=== PATIENT | female | born 1990 | race Caucasian/White ===

== ENCOUNTER → 2022-06-12 | Outpatient (CLI) | payer OTHER ==
[2022-06-12 18:57] LABS: BASO % 0.9 % (0.0-1.0); EOS % 0.9 % (0.0-3.0); HEMATOCRIT 40.8 % (36.0-47.0); HEMOGLOBIN 13.8 g/dl (12.0-15.5); LYMPH # 2.2 10^3/uL (1.5-5.0); LYMPH % 47.4 % (24.0-44.0); MEAN CORPUSCULAR HEMOGLOBIN 31.4 pg (27.0-33.0); MEAN CORPUSCULAR HGB CONC 33.8 g/dl (32.0-36.5); MEAN CORPUSCULAR VOLUME 92.9 fl (80.0-96.0); MONO # 0.6 10^3/uL (0.0-0.8); MONO % 12.6 % (2.0-8.0); NEUTROPHILS # 1.7 10^3/uL (1.5-8.5); PLATELET COUNT, AUTOMATED 250 10^3/uL (150-450); RED BLOOD COUNT 4.39 10^6/uL (4.00-5.40); WHITE BLOOD COUNT 4.5 10^3/uL (4.0-10.0)
[2022-06-12 23:34] LABS: ALT/SGPT 21 U/L (12-78); BILIRUBIN,TOTAL 0.5 MG/DL (0.2-1.0); BLOOD UREA NITROGEN 13 MG/DL (7-18); CALCIUM LEVEL 9.5 MG/DL (8.5-10.1); CARBON DIOXIDE LEVEL 26 MEQ/L (21-32); CHLORIDE LEVEL 107 MEQ/L (98-107); CREATININE FOR GFR 0.82 MG/DL (0.55-1.30); FREE T4 0.85 NG/DL (0.76-1.46); GLOMERULAR FILTRATION RATE > 60.0 (>60); GLUCOSE, FASTING 96 MG/DL (70-100); POTASSIUM SERUM 4.4 MEQ/L (3.5-5.1); SODIUM LEVEL 139 MEQ/L (136-145); THYROID STIMULATING HORMONE 0.872 uIU/ML (0.358-3.740); TOTAL PROTEIN 7.4 GM/DL (6.4-8.2)
== END ==
LOC: M PLALAB 14:56
PROVIDERS: ATTEND Nurse Practitioner Family
DX: F32.9 Major depressive disorder, single episode, unspecified (principal)

== ENCOUNTER → 2022-08-21 | Outpatient (CLI) | payer OTHER ==
[2022-08-21 11:43] LABS: PROGESTERONE 114.21 NG/ML
== END ==
LOC: M LAB 07:13
PROVIDERS: ATTEND Obstetrics & Gynecology Reproductive Endocrinology
DX: Z32.00 Encounter for pregnancy test, result unknown (principal)

== ENCOUNTER → 2022-08-23 | Outpatient (CLI) | payer OTHER ==
[2022-08-23 09:35] LABS: ESTRADIOL 1562.3 PG/ML
[2022-08-23 09:57] LABS: PROGESTERONE 158.57 NG/ML
== END ==
LOC: M LAB 07:04
PROVIDERS: ATTEND Obstetrics & Gynecology Reproductive Endocrinology
DX: Z31.49 Encounter for other procreative investigation and testing (principal)

== ENCOUNTER → 2022-08-25 | Outpatient (CLI) | payer OTHER ==
[2022-08-25 09:53] LABS: ESTRADIOL 176.2 PG/ML; PROGESTERONE 17.21 NG/ML
== END ==
LOC: M LAB 06:55
PROVIDERS: ATTEND Obstetrics & Gynecology Reproductive Endocrinology
DX: O02.81 Inappropriate change in quantitative human chorionic gonadotropin (hCG) in early pregnancy (principal); Z3A.00 Weeks of gestation of pregnancy not specified

== ENCOUNTER → 2023-03-12 | Outpatient (CLI) | payer OTHER ==
[2023-03-12 08:46] LABS: ALBUMIN 3.9 G/DL (3.2-5.2); ALKALINE PHOSPHATASE 40 U/L (46-116); ALT/SGPT 13 U/L (7.0-40); AST/SGOT 20 U/L (<34); BILIRUBIN,TOTAL 0.8 MG/DL (0.3-1.2); BLOOD UREA NITROGEN 13 MG/DL (9-23); CALCIUM LEVEL 9.4 MG/DL (8.5-10.1); CARBON DIOXIDE LEVEL 27 MMOL/L (20-31); CHLORIDE LEVEL 105 MMOL/L (98-107); GLOMERULAR FILTRATION RATE > 60.0 (>60); GLUCOSE, FASTING 94 MG/DL (60-100); POTASSIUM SERUM 4.1 MMOL/L (3.5-5.1); SODIUM LEVEL 139 MMOL/L (136-145); TOTAL PROTEIN 6.9 G/DL (5.7-8.2)
[2023-03-12 08:47] LABS: THYROID STIMULATING HORMONE 0.941 uIU/ML (0.55-4.78); TOTAL 25(OH) VITAMIN D 57.8 NG/ML (20.0-100.0)
[2023-03-12 08:48] LABS: FREE T4 1.12 NG/DL (0.89-1.76)
== END ==
LOC: M LAB 07:21
DX: E28.2 Polycystic ovarian syndrome (principal); E72.12 Methylenetetrahydrofolate reductase deficiency; M35.9 Systemic involvement of connective tissue, unspecified; D72.828 Other elevated white blood cell count; D68.59 Other primary thrombophilia; N80.00 Endometriosis of the uterus, unspecified

== ENCOUNTER → 2023-05-10 | Outpatient (CLI) | payer OTHER ==
[2023-05-10 09:30] LABS: BASO % 0.4 % (0.0-1.0); HEMATOCRIT 39.7 % (36.0-47.0); HEMOGLOBIN 13.7 g/dl (12.0-15.5); LYMPH # 1.9 10^3/uL (1.5-5.0); LYMPH % 22.5 % (24.0-44.0); MEAN CORPUSCULAR HEMOGLOBIN 31.4 pg (27.0-33.0); MEAN CORPUSCULAR HGB CONC 34.5 g/dl (32.0-36.5); MEAN CORPUSCULAR VOLUME 90.8 fl (80.0-96.0); MONO # 0.7 10^3/uL (0.0-0.8); MONO % 7.9 % (2.0-8.0); NEUTROPHILS # 5.9 10^3/uL (1.5-8.5); NEUTROPHILS % 68.6 % (36.0-66.0); PLATELET COUNT, AUTOMATED 247 10^3/uL (150-450); RED BLOOD COUNT 4.37 10^6/uL (4.00-5.40); WHITE BLOOD COUNT 8.6 10^3/uL (4.0-10.0)
[2023-05-10 10:18] LABS: INR 0.96
[2023-05-10 10:21] LABS: ALBUMIN 4.4 G/DL (3.2-5.2); ALKALINE PHOSPHATASE 40 U/L (46-116); ALT/SGPT < 9 U/L (7.0-40); AST/SGOT < 8 U/L (<34); BILIRUBIN,TOTAL 0.7 MG/DL (0.3-1.2); BLOOD UREA NITROGEN 11 MG/DL (9-23); CALCIUM LEVEL 9.6 MG/DL (8.5-10.1); CARBON DIOXIDE LEVEL 25 MMOL/L (20-31); CHLORIDE LEVEL 105 MMOL/L (98-107); GLOMERULAR FILTRATION RATE > 60.0 (>60); GLUCOSE, FASTING 94 MG/DL (60-100); SODIUM LEVEL 137 MMOL/L (136-145); TOTAL PROTEIN 7.5 G/DL (5.7-8.2)
[2023-05-10 10:22] LABS: THYROID STIMULATING HORMONE 0.783 uIU/ML (0.55-4.78)
[2023-05-10 10:23] LABS: FREE T4 1.26 NG/DL (0.89-1.76)
[2023-05-11 21:08] LABS: ANA (HEP2) Positive (.)
== END ==
LOC: M LAB 08:39
PROVIDERS: ATTEND Obstetrics & Gynecology
DX: E28.2 Polycystic ovarian syndrome (principal)

== ENCOUNTER → 2023-05-10 | Outpatient (CLI) | payer OTHER | LOC: M LAB 08:43 | PROVIDERS: ATTEND Obstetrics & Gynecology | DX: E28.2 Polycystic ovarian syndrome (principal) ==

== ENCOUNTER → 2023-05-14 | Outpatient (CLI) | payer OTHER | LOC: M LAB 07:09 | DX: E28.2 Polycystic ovarian syndrome (principal); D72.828 Other elevated white blood cell count; D68.59 Other primary thrombophilia; N80.00 Endometriosis of the uterus, unspecified; E72.12 Methylenetetrahydrofolate reductase deficiency; M35.9 Systemic involvement of connective tissue, unspecified; O09.91 Supervision of high risk pregnancy, unspecified, first trimester ==

== ENCOUNTER → 2023-05-16 | Outpatient (CLI) | payer OTHER | LOC: M LAB 07:05 | DX: E28.2 Polycystic ovarian syndrome (principal); D72.828 Other elevated white blood cell count; D68.59 Other primary thrombophilia; N80.00 Endometriosis of the uterus, unspecified; E72.12 Methylenetetrahydrofolate reductase deficiency; M35.9 Systemic involvement of connective tissue, unspecified; O09.91 Supervision of high risk pregnancy, unspecified, first trimester; Z3A.00 Weeks of gestation of pregnancy not specified ==

== ENCOUNTER → 2023-05-23 | Outpatient (CLI) | payer OTHER | LOC: M LAB 07:20 | PROVIDERS: ATTEND Obstetrics & Gynecology | DX: Z53.9 Procedure and treatment not carried out, unspecified reason (principal) ==

== ENCOUNTER → 2023-05-23 | Outpatient (CLI) | payer OTHER ==
[2023-05-23 09:29] LABS: ESTRADIOL 1081.5 PG/ML
[2023-05-23 09:41] LABS: HCG, SERUM QUANTITATIVE 81214.8 MIU/ML (<4.2)
== END ==
LOC: M LAB 07:17
PROVIDERS: ATTEND Student in an Organized Health Care Education/Training Program
DX: O09.91 Supervision of high risk pregnancy, unspecified, first trimester (principal); E28.2 Polycystic ovarian syndrome; D72.828 Other elevated white blood cell count; D68.59 Other primary thrombophilia; N85.6 Intrauterine synechiae; E72.12 Methylenetetrahydrofolate reductase deficiency; M35.9 Systemic involvement of connective tissue, unspecified

== ENCOUNTER → 2023-06-06 | Outpatient (CLI) | payer OTHER, SELFPAY | LOC: M LAB 07:58 | DX: E28.2 Polycystic ovarian syndrome (principal) ==

== ENCOUNTER → 2023-06-06 | Outpatient (CLI) | payer OTHER ==
[2023-06-06 08:34] LABS: BASO % 0.3 % (0.0-1.0); EOS % 0.2 % (0.0-3.0); HEMATOCRIT 40.5 % (36.0-47.0); HEMOGLOBIN 14.3 g/dl (12.0-15.5); LYMPH # 4.9 10^3/uL (1.5-5.0); LYMPH % 34.7 % (24.0-44.0); MEAN CORPUSCULAR HGB CONC 35.3 g/dl (32.0-36.5); MEAN CORPUSCULAR VOLUME 90.6 fl (80.0-96.0); MONO # 1.1 10^3/uL (0.0-0.8); MONO % 7.5 % (2.0-8.0); NEUTROPHILS # 8.1 10^3/uL (1.5-8.5); NEUTROPHILS % 56.8 % (36.0-66.0); PLATELET COUNT, AUTOMATED 271 10^3/uL (150-450); RED BLOOD COUNT 4.47 10^6/uL (4.00-5.40); WHITE BLOOD COUNT 14.2 10^3/uL (4.0-10.0)
[2023-06-06 09:08] LABS: ALKALINE PHOSPHATASE 33 U/L (46-116); ALT/SGPT 18 U/L (7.0-40); AST/SGOT < 8 U/L (<34); BILIRUBIN,TOTAL 0.8 MG/DL (0.3-1.2); BLOOD UREA NITROGEN 13 MG/DL (9-23); CALCIUM LEVEL 9.4 MG/DL (8.5-10.1); CARBON DIOXIDE LEVEL 26 MMOL/L (20-31); CHLORIDE LEVEL 100 MMOL/L (98-107); CREATININE FOR GFR 0.66 MG/DL (0.55-1.30); FREE T4 1.52 NG/DL (0.89-1.76); GLOMERULAR FILTRATION RATE > 60.0 (>60); GLUCOSE, FASTING 74 MG/DL (60-100); POTASSIUM SERUM 3.7 MMOL/L (3.5-5.1); SODIUM LEVEL 136 MMOL/L (136-145)
[2023-06-06 09:09] LABS: THYROID STIMULATING HORMONE 0.619 uIU/ML (0.55-4.78)
[2023-06-06 09:25] LABS: PROGESTERONE 102.63 NG/ML
[2023-06-06 09:40] LABS: INR 0.96
[2023-06-07 23:10] LABS: ANA (HEP2) Positive (.)
== END ==
LOC: M LAB 07:53
PROVIDERS: ATTEND Student in an Organized Health Care Education/Training Program
DX: E28.2 Polycystic ovarian syndrome (principal); D72.828 Other elevated white blood cell count; D68.59 Other primary thrombophilia; N80.00 Endometriosis of the uterus, unspecified; N85.6 Intrauterine synechiae; M35.9 Systemic involvement of connective tissue, unspecified; E72.12 Methylenetetrahydrofolate reductase deficiency; O09.91 Supervision of high risk pregnancy, unspecified, first trimester

== ENCOUNTER → 2023-06-19 | Outpatient (CLI) | payer OTHER ==
[2023-06-19 09:24] LABS: ESTRADIOL 1412.9 PG/ML
[2023-06-19 09:45] LABS: PROGESTERONE 124.85 NG/ML
== END ==
LOC: M LAB 08:13
PROVIDERS: ATTEND Student in an Organized Health Care Education/Training Program
DX: E28.2 Polycystic ovarian syndrome (principal); D72.828 Other elevated white blood cell count; D68.59 Other primary thrombophilia; N80.00 Endometriosis of the uterus, unspecified; E72.12 Methylenetetrahydrofolate reductase deficiency; M35.9 Systemic involvement of connective tissue, unspecified; O09.91 Supervision of high risk pregnancy, unspecified, first trimester

== ENCOUNTER 2023-07-13 07:50 | Outpatient (CLI) | payer OTHER ==
[~2023-07-13] VITALS: Ht 165.1 cm; Wt 64.5 kg
[2023-07-13] MEDS ORDERED: diphenhydrAMINE 50MG CAP PO ONE (08:20)
[2023-07-13] MEDS ORDERED: NS 250 ML IV ONE ×2 (08:20)
[2023-07-13] MEDS ORDERED: NS 500 ML IV PRN (08:20)
[2023-07-13] MEDS ORDERED: EPINEPHrine INJ 1 MG/ML 1ML AMP IM PRN (08:20)
[2023-07-13] MEDS ORDERED: ACETAMINOPHEN TAB 650MG DOSE (2X325MG) PO ONE (08:20)
[2023-07-13 08:22] VITALS: BP 127/63; O2SAT 98
[2023-07-13] MEDS ORDERED: GLY IV ONE ×2 (09:00→09:15)
[2023-07-13] MEDS ORDERED: IGA AVG IV ONE ×2 (09:00→09:15)
[2023-07-13] MEDS ORDERED: IMMUNE GLOBUL IV ONE ×2 (09:00→09:15)
[2023-07-13] MEDS ORDERED: PRED10TA2 PO (09:05)
[2023-07-13] MEDS ORDERED: HYDR200T46 PO (09:05)
[2023-07-13] MEDS ORDERED: LEVO25TA5 PO (09:05)
[2023-07-13] MEDS ORDERED: LOVE1INJ SC (09:05)
[2023-07-13] MEDS ORDERED: PROG1CAP9 PO (09:05)
[2023-07-13 09:30] VITALS: BP 128/70; O2SAT 99
[2023-07-13 10:00] VITALS: BP 117/62; O2SAT 99
[2023-07-13 10:30] VITALS: BP 116/66; O2SAT 98
[2023-07-13 11:00] VITALS: BP 113/64; O2SAT 98
[2023-07-13 12:00] VITALS: BP 137/77; O2SAT 99
== END 2023-07-13 12:00 ==
LOC: M INFU 07:50
PROVIDERS: ATTEND Student in an Organized Health Care Education/Training Program
DX: D72.828 Other elevated white blood cell count (principal)

== ENCOUNTER → 2023-07-18 | Outpatient (CLI) | payer OTHER ==
[~2023-07-18] MED LIST: HYDR200T46 PO; LEVO25TA5 PO; LOVE1INJ SC; PRED10TA2 PO; PROG1CAP9 PO
== END ==
LOC: M WHC 14:50
PROVIDERS: ATTEND Obstetrics & Gynecology
DX: O09.91 Supervision of high risk pregnancy, unspecified, first trimester (principal); D68.59 Other primary thrombophilia; M35.9 Systemic involvement of connective tissue, unspecified; N85.6 Intrauterine synechiae; Z3A.14 14 weeks gestation of pregnancy

== ENCOUNTER → 2023-07-19 | Outpatient (CLI) | payer OTHER ==
[2023-07-19 09:10] LABS: ALBUMIN 3.1 G/DL (3.2-5.2); ALKALINE PHOSPHATASE 33 U/L (46-116); ALT/SGPT 25 U/L (7.0-40); AST/SGOT 9 U/L (<34); BILIRUBIN,TOTAL 0.5 MG/DL (0.3-1.2); BLOOD UREA NITROGEN 11 MG/DL (9-23); CALCIUM LEVEL 9.1 MG/DL (8.5-10.1); CARBON DIOXIDE LEVEL 25 MMOL/L (20-31); CHLORIDE LEVEL 104 MMOL/L (98-107); CREATININE FOR GFR 0.51 MG/DL (0.55-1.30); GLOMERULAR FILTRATION RATE > 60.0 (>60); GLUCOSE, FASTING 79 MG/DL (60-100); POTASSIUM SERUM 3.5 MMOL/L (3.5-5.1); SODIUM LEVEL 137 MMOL/L (136-145); TOTAL PROTEIN 6.7 G/DL (5.7-8.2)
[2023-07-19 09:13] LABS: ESTRADIOL 1691.7 PG/ML
== END ==
LOC: M LAB 07:14
PROVIDERS: ATTEND Student in an Organized Health Care Education/Training Program
DX: E28.2 Polycystic ovarian syndrome (principal); D72.828 Other elevated white blood cell count; D68.59 Other primary thrombophilia; N80.00 Endometriosis of the uterus, unspecified; E72.12 Methylenetetrahydrofolate reductase deficiency; M35.9 Systemic involvement of connective tissue, unspecified; O09.91 Supervision of high risk pregnancy, unspecified, first trimester; Z3A.00 Weeks of gestation of pregnancy not specified

== ENCOUNTER → 2023-07-19 | Outpatient (CLI) | payer OTHER | LOC: M LAB 07:17 | PROVIDERS: ATTEND Obstetrics & Gynecology | DX: N85.6 Intrauterine synechiae (principal); E28.2 Polycystic ovarian syndrome; D72.828 Other elevated white blood cell count; D68.59 Other primary thrombophilia; N80.00 Endometriosis of the uterus, unspecified; E72.12 Methylenetetrahydrofolate reductase deficiency; M35.9 Systemic involvement of connective tissue, unspecified; O09.91 Supervision of high risk pregnancy, unspecified, first trimester ==

== ENCOUNTER → 2023-07-19 | Outpatient (CLI) | payer OTHER ==
[2023-07-19 08:44] LABS: HEMATOCRIT 33.6 % (36.0-47.0); HEMOGLOBIN 11.6 g/dl (12.0-15.5); MEAN CORPUSCULAR HGB CONC 34.5 g/dl (32.0-36.5); MEAN CORPUSCULAR VOLUME 95.5 fl (80.0-96.0); PLATELET COUNT, AUTOMATED 234 10^3/uL (150-450); RED BLOOD COUNT 3.52 10^6/uL (4.00-5.40); WHITE BLOOD COUNT 9.7 10^3/uL (4.0-10.0)
[2023-07-19 09:12] LABS: HEPATITIS B SURFACE ANTIBODY POSITIVE (POSITIVE)
[2023-07-19 09:39] LABS: HIV 1&2 SCREEN NEGATIVE (NEGATIVE)
[2023-07-19 10:35] LABS: GC DNA AMPLIFICATION NEGATIVE (NEGATIVE)
== END ==
LOC: M LAB 07:09
PROVIDERS: ATTEND Advanced Practice Midwife
DX: Z34.81 Encounter for supervision of other normal pregnancy, first trimester (principal)

== ENCOUNTER 2023-07-20 07:40 | Outpatient (CLI) | payer OTHER ==
[~2023-07-20] VITALS: Ht 165.1 cm; Wt 64.1 kg
[2023-07-20 07:40] VITALS: BP 130/73; O2SAT 98
[2023-07-20] MEDS ORDERED: NS 250 ML IV ONE ×2 (08:00)
[2023-07-20] MEDS ORDERED: diphenhydrAMINE 50MG CAP PO ONE (08:00)
[2023-07-20] MEDS ORDERED: ACETAMINOPHEN TAB 650MG DOSE (2X325MG) PO ONE (08:00)
[2023-07-20] MEDS ORDERED: GLY IV ONE ×2 (08:05→08:25)
[2023-07-20] MEDS ORDERED: IMMUNE GLOBUL IV ONE ×2 (08:05→08:25)
[2023-07-20] MEDS ORDERED: EPINEPHrine INJ 1 MG/ML 1ML AMP IM PRN (08:05)
[2023-07-20] MEDS ORDERED: IGA AVG IV ONE ×2 (08:05→08:25)
[2023-07-20] MEDS ORDERED: NS 500 ML IV PRN (08:05)
[2023-07-20 09:30] VITALS: BP 120/66; O2SAT 100
[2023-07-20 10:00] VITALS: BP 119/65; O2SAT 99
[2023-07-20 11:40] VITALS: BP 119/61; O2SAT 97
== END 2023-07-20 11:40 | disposition home or self-care (01) ==
LOC: M INFU 07:40
PROVIDERS: ATTEND Student in an Organized Health Care Education/Training Program
DX: D72.828 Other elevated white blood cell count (principal)

== ENCOUNTER 2023-08-10 07:40 | Outpatient (CLI) | payer OTHER ==
[~2023-08-10] VITALS: Ht 165.1 cm; Wt 67.2 kg
[2023-08-10 07:40] VITALS: BP 135/82; O2SAT 97
[~2023-08-10 07:40] MED LIST changes: +ECOT81TA5 PO; +METACAP3 PO; +METF-817 PO; +PLAQ200T4 PO
[2023-08-10] MEDS ORDERED: NS 500 ML IV PRN (07:55)
[2023-08-10] MEDS ORDERED: diphenhydrAMINE 50MG PO PRIOR TO INFUSION PO ONE (07:55)
[2023-08-10] MEDS ORDERED: ACETAMINOPHEN 650MG PO PRIOR TO INFUSION PO ONE (07:55)
[2023-08-10] MEDS ORDERED: NS 250 ML IV ONE ×2 (07:55)
[2023-08-10] MEDS ORDERED: EPINEPHrine INJ 1 MG/ML 1ML AMP IM PRN (08:00)
[2023-08-10] MEDS ORDERED: GLY IV ONE (08:00)
[2023-08-10] MEDS ORDERED: IGA AVG IV ONE (08:00)
[2023-08-10] MEDS ORDERED: IMMUNE GLOBUL IV ONE (08:00)
[2023-08-10 09:35] VITALS: BP 112/61; O2SAT 96
[2023-08-10 10:30] VITALS: BP 116/66; O2SAT 96
== END 2023-08-10 11:20 | disposition home or self-care (01) ==
LOC: M INFU 07:40
PROVIDERS: ATTEND Student in an Organized Health Care Education/Training Program
DX: D72.828 Other elevated white blood cell count (principal)

== ENCOUNTER → 2023-08-15 | Outpatient (CLI) | payer OTHER | LOC: M LAB 07:40 | PROVIDERS: ATTEND Obstetrics & Gynecology | DX: N85.6 Intrauterine synechiae (principal) ==

== ENCOUNTER 2023-08-24 08:00 | Outpatient (CLI) | payer OTHER ==
[~2023-08-24] VITALS: Ht 165.1 cm; Wt 60.2 kg
[2023-08-24 08:13] VITALS: BP 127/68; O2SAT 98
[2023-08-24] MEDS ORDERED: NS 250 ML IV ONE ×2 (08:30)
[2023-08-24] MEDS ORDERED: ACETAMINOPHEN 650MG PO PRIOR TO INFUSION PO ONE (08:30)
[2023-08-24] MEDS ORDERED: NS 500 ML IV PRN (08:30)
[2023-08-24] MEDS ORDERED: diphenhydrAMINE 50MG PO PRIOR TO INFUSION PO ONE (08:30)
[2023-08-24] MEDS ORDERED: EPINEPHrine INJ 1 MG/ML 1ML AMP IM PRN (08:30)
[2023-08-24] MEDS ORDERED: GLY IV ONE (08:45)
[2023-08-24] MEDS ORDERED: IMMUNE GLOBUL IV ONE (08:45)
[2023-08-24] MEDS ORDERED: IGA AVG IV ONE (08:45)
[2023-08-24 09:15] VITALS: BP 121/79; O2SAT 98
[2023-08-24 10:15] VITALS: BP 119/62; O2SAT 99
[2023-08-24 11:53] VITALS: BP 111/62; O2SAT 98
== END 2023-08-24 11:55 ==
LOC: M INFU 08:00
PROVIDERS: ATTEND Student in an Organized Health Care Education/Training Program
DX: D72.828 Other elevated white blood cell count (principal)

== ENCOUNTER → 2023-08-29 | Outpatient (CLI) | payer OTHER ==
[2023-08-29 09:30] LABS: BASO # 0.1 10^3/uL (0.0-0.2); BASO % 0.4 % (0.0-1.0); EOS # 0.1 10^3/uL (0.0-0.5); EOS % 0.4 % (0.0-3.0); HEMATOCRIT 34.6 % (36.0-47.0); LYMPH % 25.2 % (24.0-44.0); MEAN CORPUSCULAR HEMOGLOBIN 34.5 pg (27.0-33.0); MEAN CORPUSCULAR HGB CONC 34.7 g/dl (32.0-36.5); MEAN CORPUSCULAR VOLUME 99.4 fl (80.0-96.0); MONO # 1.1 10^3/uL (0.0-0.8); MONO % 6.8 % (2.0-8.0); NEUTROPHILS # 10.4 10^3/uL (1.5-8.5); NEUTROPHILS % 65.7 % (36.0-66.0); PLATELET COUNT, AUTOMATED 229 10^3/uL (150-450); RED BLOOD COUNT 3.48 10^6/uL (4.00-5.40); WHITE BLOOD COUNT 15.8 10^3/uL (4.0-10.0)
[2023-08-29 09:59] LABS: ALKALINE PHOSPHATASE 35 U/L (46-116); ALT/SGPT 15 U/L (7.0-40); AST/SGOT 12 U/L (<34); BILIRUBIN,TOTAL 0.4 MG/DL (0.3-1.2); BLOOD UREA NITROGEN 10 MG/DL (9-23); CALCIUM LEVEL 8.6 MG/DL (8.5-10.1); CARBON DIOXIDE LEVEL 24 MMOL/L (20-31); CHLORIDE LEVEL 104 MMOL/L (98-107); CREATININE FOR GFR 0.54 MG/DL (0.55-1.30); GLOMERULAR FILTRATION RATE > 60.0 (>60); GLUCOSE, FASTING 73 MG/DL (60-100); POTASSIUM SERUM 3.6 MMOL/L (3.5-5.1); SODIUM LEVEL 136 MMOL/L (136-145); TOTAL PROTEIN 6.8 G/DL (5.7-8.2)
[2023-08-29 10:02] LABS: FREE T4 1.04 NG/DL (0.89-1.76); THYROID STIMULATING HORMONE 1.408 uIU/ML (0.55-4.78)
[2023-08-30 13:08] LABS: ANTINUCLEAR ANTIBODIES DIRECT Negative (Negative)
== END ==
LOC: M LAB 08:06
PROVIDERS: ATTEND Student in an Organized Health Care Education/Training Program
DX: O09.91 Supervision of high risk pregnancy, unspecified, first trimester (principal); O99.111 Other diseases of the blood and blood-forming organs and certain disorders involving the immune mechanism complicating pregnancy, first trimester; E28.2 Polycystic ovarian syndrome; D72.828 Other elevated white blood cell count; D68.59 Other primary thrombophilia; N80.00 Endometriosis of the uterus, unspecified; E72.12 Methylenetetrahydrofolate reductase deficiency; M35.9 Systemic involvement of connective tissue, unspecified; Z3A.00 Weeks of gestation of pregnancy not specified; O99.281 Endocrine, nutritional and metabolic diseases complicating pregnancy, first trimester; O26.891 Other specified pregnancy related conditions, first trimester

== ENCOUNTER → 2023-08-29 | Outpatient (CLI) | payer OTHER | LOC: M LAB 08:08 | PROVIDERS: ATTEND Obstetrics & Gynecology | DX: E28.2 Polycystic ovarian syndrome (principal); Z53.9 Procedure and treatment not carried out, unspecified reason ==

== ENCOUNTER 2023-08-31 07:58 | Outpatient (CLI) | payer OTHER ==
[~2023-08-31] VITALS: Ht 165.1 cm; Wt 68.5 kg
[2023-08-31 08:05] VITALS: BP 135/75; O2SAT 99
[2023-08-31] MEDS ORDERED: diphenhydrAMINE 50MG PO PRIOR TO INFUSION PO ONE (08:05)
[2023-08-31] MEDS ORDERED: ACETAMINOPHEN 650MG PO PRIOR TO INFUSION PO ONE (08:05)
[2023-08-31] MEDS ORDERED: IGA AVG IV ONE (08:05)
[2023-08-31] MEDS ORDERED: GLY IV ONE (08:05)
[2023-08-31] MEDS ORDERED: IMMUNE GLOBUL IV ONE (08:05)
[2023-08-31] MEDS ORDERED: EPINEPHrine INJ 1 MG/ML 1ML AMP IM PRN (08:05)
[2023-08-31] MEDS ORDERED: NS 500 ML IV PRN (08:05)
[2023-08-31] MEDS ORDERED: NS 250 ML IV ONE ×2 (08:05)
[2023-08-31 09:30] VITALS: BP 124/59; O2SAT 99
[2023-08-31 10:00] VITALS: BP 122/62; O2SAT 96
[2023-08-31 10:30] VITALS: BP 118/72; O2SAT 98
[2023-08-31 12:00] VITALS: BP 125/65; O2SAT 98
== END 2023-08-31 09:25 ==
LOC: M INFU 07:58
PROVIDERS: ATTEND Student in an Organized Health Care Education/Training Program
DX: D72.828 Other elevated white blood cell count (principal)

== ENCOUNTER → 2023-09-03 | Outpatient (CLI) | payer OTHER | LOC: M WHC 09:47 | PROVIDERS: ATTEND Student in an Organized Health Care Education/Training Program | DX: O26.892 Other specified pregnancy related conditions, second trimester (principal); O32.1XX0 Maternal care for breech presentation, not applicable or unspecified; Z3A.21 21 weeks gestation of pregnancy; M35.9 Systemic involvement of connective tissue, unspecified ==

== ENCOUNTER 2023-09-07 06:40 | Outpatient (CLI) | payer OTHER ==
[~2023-09-07] VITALS: Ht 165.1 cm; Wt 69.1 kg
[~2023-09-07 06:40] MED LIST changes: +NS 1,000 ML IV SCH
[2023-09-07] MEDS ORDERED: IMMUNE GLOBUL IV ONE ×2 (07:00)
[2023-09-07] MEDS ORDERED: GLY IV ONE ×2 (07:00)
[2023-09-07] MEDS ORDERED: IGA AVG IV ONE ×2 (07:00)
[2023-09-07] MEDS ORDERED: ACETAMINOPHEN 650MG PO PRIOR TO INFUSION PO ONE (07:00)
[2023-09-07] MEDS ORDERED: diphenhydrAMINE 50MG PO PRIOR TO INFUSION PO ONE (07:00)
[2023-09-07] MEDS ORDERED: EPINEPHrine INJ 1 MG/ML 1ML AMP IM PRN (07:01)
[2023-09-07] MEDS ORDERED: diphenhydrAMINE 50MG/ML VIAL IV PRN (07:01)
[2023-09-07] MEDS ORDERED: methylPREDNISolone 125MG 2ML VIAL IV PRN (07:01)
[2023-09-07] MEDS ORDERED: ALBUTEROL SULFATE 2.5MG/0.5ML INH NEB SOLN INH PRN (07:01)
[2023-09-07 07:09] VITALS: BP 118/70; O2SAT 97
[2023-09-07 08:30] VITALS: BP 121/70; O2SAT 96
[2023-09-07 09:00] VITALS: BP 119/64; O2SAT 97
[2023-09-07 10:30] VITALS: BP 119/61; O2SAT 98
[2023-09-07 10:49] VITALS: BP 128/70; O2SAT 97
== END 2023-09-07 10:45 ==
LOC: M INFU 06:40
PROVIDERS: ATTEND Student in an Organized Health Care Education/Training Program
DX: M35.9 Systemic involvement of connective tissue, unspecified (principal); D68.59 Other primary thrombophilia; E72.12 Methylenetetrahydrofolate reductase deficiency; D72.828 Other elevated white blood cell count

== ENCOUNTER → 2023-09-11 | Outpatient (CLI) | payer OTHER ==
[~2023-09-11] MED LIST changes: -NS 1,000 ML IV SCH
== END ==
LOC: M LAB 08:02
PROVIDERS: ATTEND Obstetrics & Gynecology
DX: E72.12 Methylenetetrahydrofolate reductase deficiency (principal); E28.2 Polycystic ovarian syndrome; D72.828 Other elevated white blood cell count; D68.59 Other primary thrombophilia; N80.00 Endometriosis of the uterus, unspecified; M35.9 Systemic involvement of connective tissue, unspecified

== ENCOUNTER 2023-09-14 08:20 | Outpatient (CLI) | payer OTHER ==
[~2023-09-14] VITALS: Ht 165.1 cm; Wt 70.4 kg
[2023-09-14 08:20] VITALS: BP 152/69; O2SAT 97
[~2023-09-14 08:20] MED LIST changes: +ALBUTEROL SULFATE 2.5MG/0.5ML INH NEB SOLN INH PRN; +EPINEPHrine INJ 1 MG/ML 1ML AMP IM PRN; +diphenhydrAMINE 50MG/ML VIAL IV PRN; +methylPREDNISolone 125MG 2ML VIAL IV PRN
[2023-09-14] MEDS ORDERED: IMMUNE GLOBUL IV ONE ×2 (08:45)
[2023-09-14] MEDS ORDERED: NS 1,000 ML IV SCH (08:45)
[2023-09-14] MEDS ORDERED: ACETAMINOPHEN 650MG PO PRIOR TO INFUSION PO ONE (08:45)
[2023-09-14] MEDS ORDERED: diphenhydrAMINE 50MG PO PRIOR TO INFUSION PO ONE (08:45)
[2023-09-14] MEDS ORDERED: GLY IV ONE ×2 (08:45)
[2023-09-14] MEDS ORDERED: IGA AVG IV ONE ×2 (08:45)
[2023-09-14 10:10] VITALS: BP 116/67; O2SAT 96
[2023-09-14 11:22] VITALS: BP 126/72; O2SAT 97
[2023-09-14 12:05] VITALS: BP 137/75; O2SAT 97
== END 2023-09-14 12:05 ==
LOC: M INFU 08:20
PROVIDERS: ATTEND Student in an Organized Health Care Education/Training Program
DX: D72.828 Other elevated white blood cell count (principal); E72.12 Methylenetetrahydrofolate reductase deficiency; D68.59 Other primary thrombophilia; M35.9 Systemic involvement of connective tissue, unspecified

== ENCOUNTER 2023-09-21 07:20 | Outpatient (CLI) | payer OTHER ==
[~2023-09-21 07:20] MED LIST changes: -ALBUTEROL SULFATE 2.5MG/0.5ML INH NEB SOLN INH PRN; -EPINEPHrine INJ 1 MG/ML 1ML AMP IM PRN; -diphenhydrAMINE 50MG/ML VIAL IV PRN; -methylPREDNISolone 125MG 2ML VIAL IV PRN
[2023-09-21 07:35] VITALS: BP 121/77; O2SAT 98
[2023-09-21] MEDS ORDERED: IGA AVG IV ONE ×2 (07:35)
[2023-09-21] MEDS ORDERED: IMMUNE GLOBUL IV ONE ×2 (07:35)
[2023-09-21] MEDS ORDERED: diphenhydrAMINE 50MG PO PRIOR TO INFUSION PO ONE (07:35)
[2023-09-21] MEDS ORDERED: GLY IV ONE ×2 (07:35)
[2023-09-21] MEDS ORDERED: ACETAMINOPHEN 650MG PO PRIOR TO INFUSION PO ONE (07:35)
[2023-09-21] MEDS ORDERED: NS 250 ML IV ONE ×2 (07:35)
[2023-09-21] MEDS ORDERED: NS 1,000 ML IV SCH (07:35)
[2023-09-21 08:45] VITALS: BP 130/67; O2SAT 96
[2023-09-21 09:15] VITALS: BP 121/67; O2SAT 96
[2023-09-21 09:45] VITALS: BP 128/58; O2SAT 98
[2023-09-21 10:45] VITALS: BP 127/68; O2SAT 97
== END 2023-09-21 10:50 | disposition home or self-care (01) ==
LOC: M INFU 07:20
PROVIDERS: ATTEND Student in an Organized Health Care Education/Training Program
DX: D72.828 Other elevated white blood cell count (principal); E72.12 Methylenetetrahydrofolate reductase deficiency; D68.59 Other primary thrombophilia; M35.9 Systemic involvement of connective tissue, unspecified

== ENCOUNTER → 2023-09-24 | Outpatient (CLI) | payer OTHER ==
[2023-09-24 07:52] LABS: BASO % 0.3 % (0.0-1.0); EOS # 0.1 10^3/uL (0.0-0.5); EOS % 0.5 % (0.0-3.0); HEMATOCRIT 34.6 % (36.0-47.0); HEMOGLOBIN 12.2 g/dl (12.0-15.5); LYMPH # 3.2 10^3/uL (1.5-5.0); LYMPH % 26.7 % (24.0-44.0); MEAN CORPUSCULAR HEMOGLOBIN 35.1 pg (27.0-33.0); MEAN CORPUSCULAR HGB CONC 35.3 g/dl (32.0-36.5); MEAN CORPUSCULAR VOLUME 99.4 fl (80.0-96.0); MONO # 0.9 10^3/uL (0.0-0.8); MONO % 7.3 % (2.0-8.0); NEUTROPHILS # 7.7 10^3/uL (1.5-8.5); NEUTROPHILS % 64.1 % (36.0-66.0); PLATELET COUNT, AUTOMATED 194 10^3/uL (150-450); RED BLOOD COUNT 3.48 10^6/uL (4.00-5.40); WHITE BLOOD COUNT 11.9 10^3/uL (4.0-10.0)
[2023-09-24 08:32] LABS: ALBUMIN 3.1 G/DL (3.2-5.2); ALKALINE PHOSPHATASE 40 U/L (46-116); ALT/SGPT 15 U/L (7.0-40); AST/SGOT 13 U/L (<34); BILIRUBIN,TOTAL 0.4 MG/DL (0.3-1.2); BLOOD UREA NITROGEN 10 MG/DL (9-23); CALCIUM LEVEL 9.4 MG/DL (8.5-10.1); CARBON DIOXIDE LEVEL 23 MMOL/L (20-31); CHLORIDE LEVEL 103 MMOL/L (98-107); CREATININE FOR GFR 0.55 MG/DL (0.55-1.30); GLOMERULAR FILTRATION RATE > 60.0 (>60); GLUCOSE, FASTING 80 MG/DL (60-100); POTASSIUM SERUM 3.7 MMOL/L (3.5-5.1); SODIUM LEVEL 136 MMOL/L (136-145); TOTAL PROTEIN 7.6 G/DL (5.7-8.2)
[2023-09-24 08:33] LABS: FREE T4 1.12 NG/DL (0.89-1.76); THYROID STIMULATING HORMONE 1.255 uIU/ML (0.55-4.78)
== END ==
LOC: M LAB 07:30
PROVIDERS: ATTEND Student in an Organized Health Care Education/Training Program
DX: O09.91 Supervision of high risk pregnancy, unspecified, first trimester (principal); O99.280 Endocrine, nutritional and metabolic diseases complicating pregnancy, unspecified trimester; E28.2 Polycystic ovarian syndrome; O99.119 Other diseases of the blood and blood-forming organs and certain disorders involving the immune mechanism complicating pregnancy, unspecified trimester; D72.828 Other elevated white blood cell count; D68.59 Other primary thrombophilia; N85.6 Intrauterine synechiae; E72.12 Methylenetetrahydrofolate reductase deficiency; O26.899 Other specified pregnancy related conditions, unspecified trimester; M35.9 Systemic involvement of connective tissue, unspecified; Z3A.00 Weeks of gestation of pregnancy not specified

== ENCOUNTER 2023-10-01 07:30 | Outpatient (CLI) | payer OTHER ==
[2023-10-01 07:30] VITALS: BP 118/73; O2SAT 98
[2023-10-01] MEDS ORDERED: diphenhydrAMINE 50MG PO PRIOR TO INFUSION PO ONE (07:35)
[2023-10-01] MEDS ORDERED: NS 1,000 ML IV SCH (07:35)
[2023-10-01] MEDS ORDERED: ACETAMINOPHEN 650MG PO PRIOR TO INFUSION PO ONE (07:35)
[2023-10-01] MEDS ORDERED: NS 250 ML IV ONE ×2 (07:35)
[2023-10-01] MEDS ORDERED: GLY IV ONE ×2 (07:45)
[2023-10-01] MEDS ORDERED: IMMUNE GLOBUL IV ONE ×2 (07:45)
[2023-10-01] MEDS ORDERED: IGA AVG IV ONE ×2 (07:45)
[2023-10-01 09:00] VITALS: BP 123/69; O2SAT 97
[2023-10-01 09:30] VITALS: BP 129/59; O2SAT 97
[2023-10-01 10:00] VITALS: BP 130/63; O2SAT 98
[2023-10-01 11:30] VITALS: BP 122/65; O2SAT 97
== END 2023-10-01 11:30 ==
LOC: M INFU 07:30
PROVIDERS: ATTEND Student in an Organized Health Care Education/Training Program
DX: O26.892 Other specified pregnancy related conditions, second trimester (principal); D72.828 Other elevated white blood cell count; E72.12 Methylenetetrahydrofolate reductase deficiency; D68.59 Other primary thrombophilia; M35.9 Systemic involvement of connective tissue, unspecified; Z3A.25 25 weeks gestation of pregnancy

== ENCOUNTER → 2023-10-01 | Outpatient (CLI) | payer OTHER | LOC: M WHC 11:53 | PROVIDERS: ATTEND Obstetrics & Gynecology | DX: O26.892 Other specified pregnancy related conditions, second trimester (principal); M35.9 Systemic involvement of connective tissue, unspecified; Z3A.25 25 weeks gestation of pregnancy ==

== ENCOUNTER → 2023-10-05 | Outpatient (CLI) | payer OTHER ==
[2023-10-05 09:10] LABS: HEMATOCRIT 34.8 % (36.0-47.0); HEMOGLOBIN 12.2 g/dl (12.0-15.5); MEAN CORPUSCULAR HEMOGLOBIN 34.9 pg (27.0-33.0); MEAN CORPUSCULAR HGB CONC 35.1 g/dl (32.0-36.5); MEAN CORPUSCULAR VOLUME 99.4 fl (80.0-96.0); PLATELET COUNT, AUTOMATED 219 10^3/uL (150-450); WHITE BLOOD COUNT 11.7 10^3/uL (4.0-10.0)
[2023-10-05 10:56] LABS: CHLAMYDIA DNA AMPLIFICATION NEGATIVE (NEGATIVE); GC DNA AMPLIFICATION NEGATIVE (NEGATIVE)
== END ==
LOC: M LAB 07:03
PROVIDERS: ATTEND Obstetrics & Gynecology
DX: Z34.92 Encounter for supervision of normal pregnancy, unspecified, second trimester (principal)

== ENCOUNTER → 2023-10-09 | Outpatient (CLI) | payer OTHER | LOC: M LAB 07:40 | PROVIDERS: ATTEND Obstetrics & Gynecology | DX: E28.2 Polycystic ovarian syndrome (principal); D72.828 Other elevated white blood cell count; N85.6 Intrauterine synechiae; E72.12 Methylenetetrahydrofolate reductase deficiency; M35.9 Systemic involvement of connective tissue, unspecified; Z53.9 Procedure and treatment not carried out, unspecified reason ==

== ENCOUNTER 2023-10-10 06:45 | Outpatient (CLI) | payer OTHER ==
[~2023-10-10] VITALS: Ht 165.1 cm; Wt 71.0 kg
[2023-10-10 06:50] VITALS: BP 122/64; O2SAT 98
[2023-10-10] MEDS ORDERED: NS 250 ML IV SCH ×2 (07:00→10:30)
[2023-10-10] MEDS ORDERED: methylPREDNISolone 125MG 2ML VIAL IV PRN (07:01)
[2023-10-10] MEDS ORDERED: diphenhydrAMINE 50MG/ML VIAL IV PRN (07:01)
[2023-10-10] MEDS ORDERED: EPINEPHrine INJ 1 MG/ML 1ML AMP IM PRN (07:01)
[2023-10-10] MEDS ORDERED: ALBUTEROL SULFATE 2.5MG/0.5ML INH NEB SOLN INH PRN (07:01)
[2023-10-10] MEDS ORDERED: ACETAMINOPHEN TAB 650MG DOSE (2X325MG) PO ONE (07:05)
[2023-10-10] MEDS ORDERED: diphenhydrAMINE 50MG CAP PO ONE (07:05)
[2023-10-10] MEDS ORDERED: NS 1,000 ML IV SCH (07:05)
[2023-10-10] MEDS ORDERED: IGA AVG IV ONE ×2 (07:10)
[2023-10-10] MEDS ORDERED: GLY IV ONE ×2 (07:10)
[2023-10-10] MEDS ORDERED: IMMUNE GLOBUL IV ONE ×2 (07:10)
[2023-10-10 08:19] VITALS: BP 117/61; O2SAT 97
[2023-10-10 08:45] VITALS: BP 122/72; O2SAT 96
[2023-10-10 09:15] VITALS: BP 130/67; O2SAT 98
[2023-10-10 09:53] VITALS: BP 128/66; O2SAT 95
[2023-10-10 11:03] VITALS: BP 124/60; O2SAT 96
== END 2023-10-10 11:05 | disposition home or self-care (01) ==
LOC: M INFU 06:45
PROVIDERS: ATTEND Student in an Organized Health Care Education/Training Program
DX: D72.828 Other elevated white blood cell count (principal); E72.12 Methylenetetrahydrofolate reductase deficiency; D68.59 Other primary thrombophilia; M35.9 Systemic involvement of connective tissue, unspecified

== ENCOUNTER 2023-10-17 11:25 | Outpatient (CLI) | payer OTHER ==
[~2023-10-17] VITALS: Ht 165.1 cm; Wt 71.2 kg
[2023-10-17 11:25] VITALS: BP 116/62; O2SAT 98
[~2023-10-17 11:25] MED LIST changes: +ALBUTEROL SULFATE 2.5MG/0.5ML INH NEB SOLN INH PRN; +EPINEPHrine INJ 1 MG/ML 1ML AMP IM PRN; +GLY IV ONE; +IGA AVG IV ONE; +IMMUNE GLOBUL IV ONE; +diphenhydrAMINE 50MG/ML VIAL IV PRN; +methylPREDNISolone 125MG 2ML VIAL IV PRN
[2023-10-17] MEDS ORDERED: NS 1,000 ML IV SCH (11:30)
[2023-10-17] MEDS ORDERED: ACETAMINOPHEN TAB 650MG DOSE (2X325MG) PO ONE (11:30)
[2023-10-17] MEDS ORDERED: IMMUNE GLOBUL IV ONE (11:30)
[2023-10-17] MEDS ORDERED: GLY IV ONE (11:30)
[2023-10-17] MEDS ORDERED: IGA AVG IV ONE (11:30)
[2023-10-17] MEDS ORDERED: diphenhydrAMINE 25MG CAP PO ONE (11:30)
[2023-10-17] MEDS ORDERED: NS 250 ML IV ONE ×2 (11:30)
[2023-10-17 12:15] VITALS: BP 118/58; O2SAT 99
[2023-10-17 12:45] VITALS: BP 108/57; O2SAT 100
[2023-10-17 13:15] VITALS: BP 101/55; O2SAT 100
[2023-10-17 15:35] VITALS: BP 118/78; O2SAT 93
== END 2023-10-17 15:35 | disposition home or self-care (01) ==
LOC: M INFU 11:25
PROVIDERS: ATTEND Student in an Organized Health Care Education/Training Program
DX: D72.828 Other elevated white blood cell count (principal); E72.12 Methylenetetrahydrofolate reductase deficiency; D68.59 Other primary thrombophilia; M35.9 Systemic involvement of connective tissue, unspecified

== ENCOUNTER → 2023-10-18 | Outpatient (CLI) | payer OTHER ==
[~2023-10-18] MED LIST changes: -ALBUTEROL SULFATE 2.5MG/0.5ML INH NEB SOLN INH PRN; -EPINEPHrine INJ 1 MG/ML 1ML AMP IM PRN; -GLY IV ONE; -IGA AVG IV ONE; -IMMUNE GLOBUL IV ONE; -diphenhydrAMINE 50MG/ML VIAL IV PRN; -methylPREDNISolone 125MG 2ML VIAL IV PRN
[2023-10-18 16:11] LABS: HEMATOCRIT 33.6 % (36.0-47.0); MEAN CORPUSCULAR HEMOGLOBIN 35.3 pg (27.0-33.0); MEAN CORPUSCULAR HGB CONC 35.7 g/dl (32.0-36.5); MEAN CORPUSCULAR VOLUME 98.8 fl (80.0-96.0); PLATELET COUNT, AUTOMATED 191 10^3/uL (150-450); WHITE BLOOD COUNT 10.7 10^3/uL (4.0-10.0)
[2023-10-18 16:34] LABS: CREATININE,RANDOM URINE 39.5 MG/DL
[2023-10-18 16:35] LABS: ALBUMIN 3.1 G/DL (3.2-5.2); ALKALINE PHOSPHATASE 46 U/L (46-116); ALT/SGPT 12 U/L (7.0-40); AST/SGOT 13 U/L (<34); BILIRUBIN,TOTAL 0.4 MG/DL (0.3-1.2); BLOOD UREA NITROGEN 9 MG/DL (9-23); CALCIUM LEVEL 9.1 MG/DL (8.5-10.1); CARBON DIOXIDE LEVEL 22 MMOL/L (20-31); CHLORIDE LEVEL 104 MMOL/L (98-107); CREATININE FOR GFR 0.54 MG/DL (0.55-1.30); GLOMERULAR FILTRATION RATE > 60.0 (>60); GLUCOSE, FASTING 93 MG/DL (60-100); POTASSIUM SERUM 4.2 MMOL/L (3.5-5.1); SODIUM LEVEL 135 MMOL/L (136-145); TOTAL PROTEIN 7.4 G/DL (5.7-8.2)
== END ==
LOC: M PLALAB 14:27
PROVIDERS: ATTEND Obstetrics & Gynecology
DX: O16.9 Unspecified maternal hypertension, unspecified trimester (principal); Z3A.00 Weeks of gestation of pregnancy not specified

== ENCOUNTER → 2023-11-09 | Outpatient (CLI) | payer OTHER ==
[~2023-11-09] VITALS: Ht 165.1 cm; Wt 73.0 kg
[~2023-11-09] MED LIST changes: +ACETAMINOPHEN TAB 650MG DOSE (2X325MG) PO ONE; +ALBUTEROL SULFATE 2.5MG/0.5ML INH NEB SOLN INH PRN; +EPINEPHrine INJ 1 MG/ML 1ML AMP IM PRN; +GLY IV ONE; +IGA AVG IV ONE; +IMMUNE GLOBUL IV ONE; +NS 1,000 ML IV SCH; +NS 250 ML IV ONE; +diphenhydrAMINE 25MG CAP PO ONE; +diphenhydrAMINE 50MG/ML VIAL IV PRN; +methylPREDNISolone 125MG 2ML VIAL IV PRN
[2023-11-09 07:20] VITALS: BP 125/73; O2SAT 97
[2023-11-09 09:15] VITALS: BP 123/66; O2SAT 97
[2023-11-09 09:45] VITALS: BP 117/67; O2SAT 98
[2023-11-09 10:15] VITALS: BP 114/62; O2SAT 97
[2023-11-09 11:30] VITALS: BP 132/72; O2SAT 98
== END ==
LOC: M INFU 07:16
PROVIDERS: ATTEND Student in an Organized Health Care Education/Training Program
DX: D72.828 Other elevated white blood cell count (principal); E72.12 Methylenetetrahydrofolate reductase deficiency; D68.59 Other primary thrombophilia; M35.9 Systemic involvement of connective tissue, unspecified

== ENCOUNTER → 2023-11-09 | Outpatient (CLI) | payer OTHER ==
[~2023-11-09] MED LIST changes: -ACETAMINOPHEN TAB 650MG DOSE (2X325MG) PO ONE; -ALBUTEROL SULFATE 2.5MG/0.5ML INH NEB SOLN INH PRN; -EPINEPHrine INJ 1 MG/ML 1ML AMP IM PRN; -GLY IV ONE; -IGA AVG IV ONE; -IMMUNE GLOBUL IV ONE; -NS 1,000 ML IV SCH; -NS 250 ML IV ONE; -diphenhydrAMINE 25MG CAP PO ONE; -diphenhydrAMINE 50MG/ML VIAL IV PRN; -methylPREDNISolone 125MG 2ML VIAL IV PRN
== END ==
LOC: M WHC 13:01
PROVIDERS: ATTEND Obstetrics & Gynecology
DX: O99.113 Other diseases of the blood and blood-forming organs and certain disorders involving the immune mechanism complicating pregnancy, third trimester (principal); D89.89 Other specified disorders involving the immune mechanism, not elsewhere classified; Z3A.30 30 weeks gestation of pregnancy; E72.12 Methylenetetrahydrofolate reductase deficiency; D68.59 Other primary thrombophilia; O99.283 Endocrine, nutritional and metabolic diseases complicating pregnancy, third trimester

== ENCOUNTER 2023-11-16 07:00 | Outpatient (CLI) | payer OTHER ==
[~2023-11-16] VITALS: Ht 165.1 cm; Wt 74.0 kg
[2023-11-16] MEDS ORDERED: methylPREDNISolone 125MG 2ML VIAL IV PRN (07:01)
[2023-11-16] MEDS ORDERED: EPINEPHrine INJ 1 MG/ML 1ML AMP IM PRN (07:01)
[2023-11-16] MEDS ORDERED: diphenhydrAMINE 50MG/ML VIAL IV PRN (07:01)
[2023-11-16] MEDS ORDERED: ALBUTEROL SULFATE 2.5MG/0.5ML INH NEB SOLN INH PRN (07:01)
[2023-11-16 07:18] VITALS: BP 132/63; O2SAT 98
[2023-11-16] MEDS ORDERED: IGA AVG IV ONE ×2 (07:30)
[2023-11-16] MEDS ORDERED: ACETAMINOPHEN TAB 650MG DOSE (2X325MG) PO ONE (07:30)
[2023-11-16] MEDS ORDERED: NS 250 ML IV ONE ×2 (07:30)
[2023-11-16] MEDS ORDERED: diphenhydrAMINE 25MG CAP PO ONE (07:30)
[2023-11-16] MEDS ORDERED: GLY IV ONE ×2 (07:30)
[2023-11-16] MEDS ORDERED: IMMUNE GLOBUL IV ONE ×2 (07:30)
[2023-11-16] MEDS ORDERED: NS 1,000 ML IV SCH (07:30)
[2023-11-16 08:15] VITALS: BP 135/68; O2SAT 97
[2023-11-16 08:45] VITALS: BP 132/62; O2SAT 96
[2023-11-16 10:03] VITALS: BP 136/72; O2SAT 98
== END 2023-11-16 10:10 | disposition home or self-care (01) ==
LOC: M INFU 07:00
PROVIDERS: ATTEND Student in an Organized Health Care Education/Training Program
DX: D72.828 Other elevated white blood cell count (principal); E72.12 Methylenetetrahydrofolate reductase deficiency; D68.59 Other primary thrombophilia; M35.9 Systemic involvement of connective tissue, unspecified

== ENCOUNTER → 2023-11-16 | Outpatient (CLI) | payer OTHER | LOC: M RAD 12:52 | PROVIDERS: ATTEND Obstetrics & Gynecology | DX: D89.89 Other specified disorders involving the immune mechanism, not elsewhere classified (principal); O43.893 Other placental disorders, third trimester; Z3A.31 31 weeks gestation of pregnancy ==

== ENCOUNTER → 2023-11-20 | Outpatient (CLI) | payer OTHER ==
[2023-11-20 16:26] LABS: BASO # 0.1 10^3/uL (0.0-0.2); BASO % 0.5 % (0.0-1.0); EOS # 0.1 10^3/uL (0.0-0.5); EOS % 0.9 % (0.0-3.0); HEMATOCRIT 34.4 % (36.0-47.0); LYMPH # 1.6 10^3/uL (1.5-5.0); LYMPH % 14.1 % (24.0-44.0); MEAN CORPUSCULAR HEMOGLOBIN 33.7 pg (27.0-33.0); MEAN CORPUSCULAR HGB CONC 34.9 g/dl (32.0-36.5); MEAN CORPUSCULAR VOLUME 96.6 fl (80.0-96.0); MONO # 0.9 10^3/uL (0.0-0.8); NEUTROPHILS # 8.7 10^3/uL (1.5-8.5); NEUTROPHILS % 74.5 % (36.0-66.0); PLATELET COUNT, AUTOMATED 206 10^3/uL (150-450); RED BLOOD COUNT 3.56 10^6/uL (4.00-5.40); WHITE BLOOD COUNT 11.6 10^3/uL (4.0-10.0)
[2023-11-20 16:30] LABS: INR 1.02; PROTHROMBIN TIME 13.1 SECONDS (12.5-14.5)
[2023-11-20 16:35] LABS: ALBUMIN 3.1 G/DL (3.2-5.2); ALKALINE PHOSPHATASE 68 U/L (46-116); ALT/SGPT 12 U/L (7.0-40); AST/SGOT 13 U/L (<34); BILIRUBIN,TOTAL 0.3 MG/DL (0.3-1.2); BLOOD UREA NITROGEN 7 MG/DL (9-23); CALCIUM LEVEL 9.2 MG/DL (8.5-10.1); CARBON DIOXIDE LEVEL 21 MMOL/L (20-31); CHLORIDE LEVEL 106 MMOL/L (98-107); CREATININE FOR GFR 0.64 MG/DL (0.55-1.30); GLOMERULAR FILTRATION RATE > 60.0 (>60); GLUCOSE, FASTING 101 MG/DL (60-100); SODIUM LEVEL 136 MMOL/L (136-145); TOTAL PROTEIN 6.9 G/DL (5.7-8.2)
[2023-11-20 16:36] LABS: FREE T4 1.03 NG/DL (0.89-1.76)
[2023-11-20 16:37] LABS: THYROID STIMULATING HORMONE 0.176 uIU/ML (0.55-4.78)
== END ==
LOC: M PLALAB 13:59
PROVIDERS: ATTEND Student in an Organized Health Care Education/Training Program
DX: O09.92 Supervision of high risk pregnancy, unspecified, second trimester (principal); E72.12 Methylenetetrahydrofolate reductase deficiency; M35.9 Systemic involvement of connective tissue, unspecified; D72.828 Other elevated white blood cell count; N80.03 Adenomyosis of the uterus; D68.59 Other primary thrombophilia; E28.2 Polycystic ovarian syndrome; Z3A.00 Weeks of gestation of pregnancy not specified

== ENCOUNTER 2023-11-23 07:26 | Outpatient (CLI) | payer OTHER ==
[~2023-11-23] VITALS: Ht 165.1 cm; Wt 74.6 kg
[~2023-11-23 07:26] MED LIST changes: +ALBUTEROL SULFATE 2.5MG/0.5ML INH NEB SOLN INH PRN; +EPINEPHrine INJ 1 MG/ML 1ML AMP IM PRN; +NS 1,000 ML IV SCH; +diphenhydrAMINE 50MG/ML VIAL IV PRN; +methylPREDNISolone 125MG 2ML VIAL IV PRN
[2023-11-23] MEDS ORDERED: ACETAMINOPHEN 650MG PO PRIOR TO INFUSION PO ONE (07:30)
[2023-11-23] MEDS ORDERED: IMMUNE GLOBUL IV ONE ×2 (07:30)
[2023-11-23] MEDS ORDERED: diphenhydrAMINE 50MG PO PRIOR TO INFUSION PO ONE (07:30)
[2023-11-23] MEDS ORDERED: GLY IV ONE ×2 (07:30)
[2023-11-23] MEDS ORDERED: IGA AVG IV ONE ×2 (07:30)
[2023-11-23 07:35] VITALS: BP 109/63; O2SAT 99
[2023-11-23] MEDS ORDERED: NS 250 ML IV SCH ×2 (07:50→10:00)
[2023-11-23 09:00] VITALS: BP 129/66; O2SAT 98
[2023-11-23 09:30] VITALS: BP 118/62; O2SAT 98
[2023-11-23 10:00] VITALS: BP 121/59; O2SAT 97
[2023-11-23 11:00] VITALS: BP 127/63; O2SAT 98
[2023-11-23 12:00] VITALS: BP 119/56; O2SAT 98
== END 2023-11-23 12:00 ==
LOC: M INFU 07:26
PROVIDERS: ATTEND Student in an Organized Health Care Education/Training Program
DX: D72.828 Other elevated white blood cell count (principal); E72.12 Methylenetetrahydrofolate reductase deficiency; D68.59 Other primary thrombophilia; M35.9 Systemic involvement of connective tissue, unspecified

== ENCOUNTER → 2023-11-23 | Outpatient (CLI) | payer OTHER | LOC: M WHC 13:49 | PROVIDERS: ATTEND Obstetrics & Gynecology | DX: O99.113 Other diseases of the blood and blood-forming organs and certain disorders involving the immune mechanism complicating pregnancy, third trimester (principal); D89.89 Other specified disorders involving the immune mechanism, not elsewhere classified; Z3A.32 32 weeks gestation of pregnancy ==

== ENCOUNTER → 2023-11-29 | Outpatient (CLI) | payer OTHER ==
[~2023-11-29] MED LIST changes: -ALBUTEROL SULFATE 2.5MG/0.5ML INH NEB SOLN INH PRN; -EPINEPHrine INJ 1 MG/ML 1ML AMP IM PRN; -NS 1,000 ML IV SCH; -diphenhydrAMINE 50MG/ML VIAL IV PRN; -methylPREDNISolone 125MG 2ML VIAL IV PRN
== END ==
LOC: M PLALAB 14:42
PROVIDERS: ATTEND Obstetrics & Gynecology
DX: O09.91 Supervision of high risk pregnancy, unspecified, first trimester (principal); E28.2 Polycystic ovarian syndrome; D72.828 Other elevated white blood cell count; D68.59 Other primary thrombophilia; N80.00 Endometriosis of the uterus, unspecified; E72.12 Methylenetetrahydrofolate reductase deficiency; M35.9 Systemic involvement of connective tissue, unspecified; Z3A.00 Weeks of gestation of pregnancy not specified; O99.111 Other diseases of the blood and blood-forming organs and certain disorders involving the immune mechanism complicating pregnancy, first trimester; O99.281 Endocrine, nutritional and metabolic diseases complicating pregnancy, first trimester; O26.891 Other specified pregnancy related conditions, first trimester

== ENCOUNTER → 2023-11-29 | Outpatient (CLI) | payer OTHER | LOC: M WHC 14:36 | PROVIDERS: ATTEND Obstetrics & Gynecology | DX: O99.13 Other diseases of the blood and blood-forming organs and certain disorders involving the immune mechanism complicating the puerperium (principal); D89.89 Other specified disorders involving the immune mechanism, not elsewhere classified; Z3A.33 33 weeks gestation of pregnancy; O09.93 Supervision of high risk pregnancy, unspecified, third trimester; E28.2 Polycystic ovarian syndrome; D68.59 Other primary thrombophilia; N80.00 Endometriosis of the uterus, unspecified; E72.12 Methylenetetrahydrofolate reductase deficiency; O99.113 Other diseases of the blood and blood-forming organs and certain disorders involving the immune mechanism complicating pregnancy, third trimester; O99.283 Endocrine, nutritional and metabolic diseases complicating pregnancy, third trimester; O26.893 Other specified pregnancy related conditions, third trimester ==

== ENCOUNTER 2023-11-30 07:07 | Outpatient (CLI) | payer OTHER ==
[~2023-11-30] VITALS: Ht 165.1 cm; Wt 74.9 kg
[2023-11-30 07:07] VITALS: BP 132/65; O2SAT 98
[~2023-11-30 07:07] MED LIST changes: +ALBUTEROL SULFATE 2.5MG/0.5ML INH NEB SOLN INH PRN; +EPINEPHrine INJ 1 MG/ML 1ML AMP IM PRN; +diphenhydrAMINE 50MG/ML VIAL IV PRN; +methylPREDNISolone 125MG 2ML VIAL IV PRN
[2023-11-30] MEDS: diphenhydrAMINE 50MG PO PRIOR TO INFUSION PO ONE (07:19)
[2023-11-30] MEDS: ACETAMINOPHEN 650MG PO PRIOR TO INFUSION PO ONE (07:19)
[2023-11-30] MEDS: IMMUNE GLOBUL IV ONE ×2 (07:33→07:34)
[2023-11-30] MEDS: IGA AVG IV ONE ×2 (07:33→07:34)
[2023-11-30] MEDS: GLY IV ONE ×2 (07:33→07:34)
[2023-11-30] MEDS: NS 1,000 ML IV SCH (07:38)
[2023-11-30 09:15] VITALS: BP 116/62; O2SAT 100
[2023-11-30 09:45] VITALS: BP 120/66; O2SAT 100
[2023-11-30 10:45] VITALS: BP 117/65; O2SAT 100
[2023-11-30 11:30] VITALS: BP 120/65; O2SAT 97
== END 2023-11-30 11:30 | disposition home or self-care (01) ==
LOC: M INFU 07:07
PROVIDERS: ATTEND Student in an Organized Health Care Education/Training Program
DX: D72.828 Other elevated white blood cell count (principal); E72.12 Methylenetetrahydrofolate reductase deficiency; D68.59 Other primary thrombophilia; M35.9 Systemic involvement of connective tissue, unspecified

== ENCOUNTER 2023-12-07 07:10 | Outpatient (CLI) | payer OTHER ==
[~2023-12-07] VITALS: Ht 165.1 cm; Wt 75.0 kg
[2023-12-07 07:00] VITALS: BP 124/75; O2SAT 98
[2023-12-07] MEDS ORDERED: ALBUTEROL SULFATE 2.5MG/0.5ML INH NEB SOLN INH PRN (07:30)
[2023-12-07] MEDS ORDERED: IMMUNE GLOBUL IV ONE ×2 (07:30)
[2023-12-07] MEDS ORDERED: GLY IV ONE ×2 (07:30)
[2023-12-07] MEDS ORDERED: EPINEPHrine INJ 1 MG/ML 1ML AMP IM PRN (07:30)
[2023-12-07] MEDS ORDERED: IGA AVG IV ONE ×2 (07:30)
[2023-12-07] MEDS ORDERED: ACETAMINOPHEN 650MG PO PRIOR TO INFUSION PO ONE (07:30)
[2023-12-07] MEDS ORDERED: diphenhydrAMINE 50MG/ML VIAL IV PRN (07:30)
[2023-12-07] MEDS ORDERED: methylPREDNISolone 125MG 2ML VIAL IV PRN (07:30)
[2023-12-07] MEDS ORDERED: NS 1,000 ML IV SCH (07:30)
[2023-12-07] MEDS ORDERED: diphenhydrAMINE 50MG PO PRIOR TO INFUSION PO ONE (07:30)
[2023-12-07] MEDS ORDERED: NS 250 ML IV ONE ×2 (07:55→09:00)
[2023-12-07 08:45] VITALS: BP 121/70; O2SAT 98
[2023-12-07 09:14] VITALS: BP 127/67; O2SAT 100
[2023-12-07 09:45] VITALS: BP 119/62; O2SAT 100
[2023-12-07 11:59] VITALS: BP 125/69; O2SAT 97
== END 2023-12-07 12:00 ==
LOC: M INFU 07:10
PROVIDERS: ATTEND Student in an Organized Health Care Education/Training Program
DX: D72.828 Other elevated white blood cell count (principal); E72.12 Methylenetetrahydrofolate reductase deficiency; D68.59 Other primary thrombophilia; M35.9 Systemic involvement of connective tissue, unspecified

== ENCOUNTER → 2023-12-07 | Outpatient (CLI) | payer OTHER ==
[~2023-12-07] MED LIST changes: -ALBUTEROL SULFATE 2.5MG/0.5ML INH NEB SOLN INH PRN; -EPINEPHrine INJ 1 MG/ML 1ML AMP IM PRN; -diphenhydrAMINE 50MG/ML VIAL IV PRN; -methylPREDNISolone 125MG 2ML VIAL IV PRN
== END ==
LOC: M WHC 13:14
PROVIDERS: ATTEND Obstetrics & Gynecology
DX: Z34.93 Encounter for supervision of normal pregnancy, unspecified, third trimester (principal); D89.89 Other specified disorders involving the immune mechanism, not elsewhere classified; Z3A.34 34 weeks gestation of pregnancy

== ENCOUNTER → 2023-12-11 | Outpatient (CLI) | payer OTHER ==
[~2023-12-11] MED LIST changes: +HEPA100I26 IV; +TACR1CAP3 PO
== END ==
LOC: M RAD 16:29
PROVIDERS: ATTEND Obstetrics & Gynecology
DX: O43.103 Malformation of placenta, unspecified, third trimester (principal); Z3A.00 Weeks of gestation of pregnancy not specified

== ENCOUNTER → 2023-12-13 | Outpatient (CLI) | payer OTHER ==
[~2023-12-13] MED LIST changes: -HEPA100I26 IV; -TACR1CAP3 PO
== END ==
LOC: M LAB 14:30
PROVIDERS: ATTEND Student in an Organized Health Care Education/Training Program
DX: O09.92 Supervision of high risk pregnancy, unspecified, second trimester (principal); E72.12 Methylenetetrahydrofolate reductase deficiency; M35.9 Systemic involvement of connective tissue, unspecified; D72.828 Other elevated white blood cell count; D68.59 Other primary thrombophilia; N80.03 Adenomyosis of the uterus; Z3A.00 Weeks of gestation of pregnancy not specified

== ENCOUNTER 2023-12-14 07:10 | Outpatient (CLI) | payer OTHER ==
[~2023-12-14] VITALS: Ht 165.1 cm; Wt 77.3 kg
[~2023-12-14 07:10] MED LIST changes: +ALBUTEROL SULFATE 2.5MG/0.5ML INH NEB SOLN INH PRN; +EPINEPHrine INJ 1 MG/ML 1ML AMP IM PRN; +NS 1,000 ML IV SCH; +diphenhydrAMINE 50MG/ML VIAL IV PRN; +methylPREDNISolone 125MG 2ML VIAL IV PRN
[2023-12-14 07:17] VITALS: BP 131/79; O2SAT 99
[2023-12-14] MEDS: NS 250 ML IV ONE (07:29)
[2023-12-14] MEDS: diphenhydrAMINE 50MG PO PRIOR TO INFUSION PO ONE (07:29)
[2023-12-14] MEDS: ACETAMINOPHEN 650MG PO PRIOR TO INFUSION PO ONE (07:29)
[2023-12-14] MEDS ORDERED: IMMUNE GLOBUL IV ONE (07:30)
[2023-12-14] MEDS ORDERED: IGA AVG IV ONE (07:30)
[2023-12-14] MEDS ORDERED: IMMUNE GLOBUL G/GLY/IGA AVG 46 200 ML IV ONE (07:30)
[2023-12-14] MEDS ORDERED: GLY IV ONE (07:30)
[2023-12-14] MEDS: IGA AVG IV ONE ×2 (08:07→08:09)
[2023-12-14] MEDS: GLY IV ONE ×2 (08:07→08:09)
[2023-12-14] MEDS: IMMUNE GLOBUL IV ONE ×2 (08:07→08:09)
[2023-12-14 09:03] VITALS: BP 120/67; O2SAT 94
[2023-12-14] MEDS: NS 250 ML IV SCH (10:04)
[2023-12-14 10:54] VITALS: BP 134/77; O2SAT 97
== END 2023-12-14 11:00 ==
LOC: M INFU 07:10
PROVIDERS: ATTEND Student in an Organized Health Care Education/Training Program
DX: D72.828 Other elevated white blood cell count (principal); E72.12 Methylenetetrahydrofolate reductase deficiency; D68.59 Other primary thrombophilia; M35.9 Systemic involvement of connective tissue, unspecified

== ENCOUNTER → 2023-12-14 | Outpatient (CLI) | payer OTHER | LOC: M WHC 13:07 | PROVIDERS: ATTEND Obstetrics & Gynecology | DX: O99.13 Other diseases of the blood and blood-forming organs and certain disorders involving the immune mechanism complicating the puerperium (principal); D89.89 Other specified disorders involving the immune mechanism, not elsewhere classified; Z3A.35 35 weeks gestation of pregnancy ==

== ENCOUNTER → 2023-12-18 | Outpatient (REF) | payer OTHER ==
[~2023-12-18] MED LIST changes: -ALBUTEROL SULFATE 2.5MG/0.5ML INH NEB SOLN INH PRN; -EPINEPHrine INJ 1 MG/ML 1ML AMP IM PRN; -NS 1,000 ML IV SCH; -diphenhydrAMINE 50MG/ML VIAL IV PRN; -methylPREDNISolone 125MG 2ML VIAL IV PRN
== END ==
LOC: M SFHCWAGY 10:17
PROVIDERS: ATTEND Specialist
DX: O99.113 Other diseases of the blood and blood-forming organs and certain disorders involving the immune mechanism complicating pregnancy, third trimester (principal); Z36.89 Encounter for other specified antenatal screening; Z3A.00 Weeks of gestation of pregnancy not specified

== ENCOUNTER → 2023-12-21 | Outpatient (CLI) | payer OTHER ==
[~2023-12-21] MED LIST changes: +HEPA100I26 IV; +TACR1CAP3 PO
== END ==
LOC: M WHC 13:21
PROVIDERS: ATTEND Obstetrics & Gynecology
DX: O99.113 Other diseases of the blood and blood-forming organs and certain disorders involving the immune mechanism complicating pregnancy, third trimester (principal); D89.89 Other specified disorders involving the immune mechanism, not elsewhere classified; Z3A.36 36 weeks gestation of pregnancy

== ENCOUNTER 2023-12-22 05:39 | Outpatient (CLI) | payer OTHER ==
[~2023-12-22] VITALS: Ht 165.1 cm; Wt 77.2 kg
[~2023-12-22 05:39] MED LIST changes: -HEPA100I26 IV; -TACR1CAP3 PO
[2023-12-22] MEDS ORDERED: HEPA100I26 IV (06:16)
[2023-12-22] MEDS ORDERED: TACR1CAP3 PO (06:16)
[2023-12-22 06:25] VITALS: BP 126/83
[2023-12-22] MEDS: LR 1,000 ML IV ONE (08:30)
[2023-12-22 08:31] LABS: HEMATOCRIT 35.3 % (36.0-47.0); HEMOGLOBIN 12.4 g/dl (12.0-15.5); MEAN CORPUSCULAR HEMOGLOBIN 33.3 pg (27.0-33.0); MEAN CORPUSCULAR HGB CONC 35.1 g/dl (32.0-36.5); MEAN CORPUSCULAR VOLUME 94.9 fl (80.0-96.0); PLATELET COUNT, AUTOMATED 179 10^3/uL (150-450); RED BLOOD COUNT 3.72 10^6/uL (4.00-5.40); WHITE BLOOD COUNT 9.6 10^3/uL (4.0-10.0)
[2023-12-22] MEDS ORDERED: LR 1,000 ML IV SCH (09:30)
== END 2023-12-22 12:05 | disposition other institution (70) ==
LOC: M LDO 05:39
PROVIDERS: ATTEND Advanced Practice Midwife
DX: O43.213 Placenta accreta, third trimester (principal); Z3A.37 37 weeks gestation of pregnancy; O99.113 Other diseases of the blood and blood-forming organs and certain disorders involving the immune mechanism complicating pregnancy, third trimester; D89.89 Other specified disorders involving the immune mechanism, not elsewhere classified; O26.893 Other specified pregnancy related conditions, third trimester; N85.6 Intrauterine synechiae; Z79.82 Long term (current) use of aspirin; Z79.890 Hormone replacement therapy; Z79.84 Long term (current) use of oral hypoglycemic drugs; Z79.52 Long term (current) use of systemic steroids; Z79.899 Other long term (current) drug therapy
CPT/HCPCS: 36415; 59025; 85027; 86592; 86780; 86850; 86900; 86901; 87635; G0463

== ENCOUNTER → 2024-02-18 | Outpatient (CLI) | payer OTHER ==
[~2024-02-18] MED LIST changes: +HEPA100I26 IV; +TACR1CAP3 PO
[2024-02-18 12:57] LABS: FREE T4 0.96 NG/DL (0.89-1.76); THYROID STIMULATING HORMONE 1.264 uIU/ML (0.55-4.78)
== END ==
LOC: M PLALAB 10:47
PROVIDERS: ATTEND Obstetrics & Gynecology
DX: D89.89 Other specified disorders involving the immune mechanism, not elsewhere classified (principal)

== ENCOUNTER 2024-03-25 07:45 | Outpatient (RCR) | payer OTHER | END 2024-04-04 | LOC: M PT 07:45 | PROVIDERS: ATTEND Family Medicine | DX: Z39.2 Encounter for routine postpartum follow-up (principal); N94.10 Unspecified dyspareunia ==

== ENCOUNTER 2024-04-14 11:45 | Outpatient (RCR) | payer OTHER | END 2024-05-04 | LOC: M PT 11:45 | PROVIDERS: ATTEND Family Medicine | DX: Z39.2 Encounter for routine postpartum follow-up (principal) ==

== ENCOUNTER 2024-05-22 11:38 | Outpatient (RCR) | payer OTHER | END 2024-06-04 | LOC: M PT 11:38 | PROVIDERS: ATTEND Obstetrics & Gynecology | DX: Z39.2 Encounter for routine postpartum follow-up (principal) ==